=== PATIENT | female | born 1970 | race Caucasian/White ===

== ENCOUNTER 2022-02-15 10:07 | Outpatient (CLI) | payer BC | END 2022-02-15 10:08 | disposition home or self-care (01) | LOC: CSHMAMMO 10:07 | PROVIDERS: ATTEND Obstetrics & Gynecology | DX: Z12.31 Encounter for screening mammogram for malignant neoplasm of breast (principal); Z80.3 Family history of malignant neoplasm of breast | CPT/HCPCS: 77063; 77067 ==

== ENCOUNTER 2024-11-01 13:37 | Outpatient (CLI) | payer BC | END 2024-11-01 13:38 | disposition home or self-care (01) | LOC: CSHMAMMO 13:37 | PROVIDERS: ATTEND Obstetrics & Gynecology | DX: Z12.31 Encounter for screening mammogram for malignant neoplasm of breast (principal); Z80.3 Family history of malignant neoplasm of breast | CPT/HCPCS: 77063; 77067 ==

== ENCOUNTER 2025-01-10 15:18 | Outpatient (CLI) | payer BC | END 2025-01-10 15:19 | disposition home or self-care (01) | LOC: CSHMAMMO 15:18 | PROVIDERS: ATTEND Obstetrics & Gynecology | DX: Z78.0 Asymptomatic menopausal state (principal) | CPT/HCPCS: 77080 ==